=== PATIENT | female | born 2005 | race African-American/Black ===

== ENCOUNTER 2023-01-08 02:24 | Emergency (ER) | payer OTHER ==
[2023-01-08 02:33] VITALS: BP 136/64; RESP 18; TEMP 100.7; BMI 36.6
[2023-01-08] MEDS ORDERED: IBUPROFEN 600 MG TABLET (FP) PO ONE ×2 (02:51→02:52)
[2023-01-08 03:34] VITALS: PULSE 108
== END 2023-01-08 03:32 | disposition home or self-care (01) ==
LOC: FER 02:24
DX: J02.0 Streptococcal pharyngitis (principal); M79.10 Myalgia, unspecified site; R50.9 Fever, unspecified; R10.13 Epigastric pain; Z20.822 Contact with and (suspected) exposure to COVID-19
CPT/HCPCS: 0241U-QW; 87651; 99283-25